=== PATIENT | female | born 1980 | race African-American/Black ===

== ENCOUNTER 2017-07-30 20:36 | Observation (INO) | payer OTHER, MEDICAID ==
[2017-07-30 20:53] VITALS: BP 129/75; PULSE 91; RESP 18; TEMP 98.3; O2SAT 100
--- NOTE | 2017-07-30 21:10 | PD ---
HPI Chief Complaint: Chest Pain Time Seen by Provider: 21:08 Travel History International Travel<30 days: No Contact w/Intl Traveler<30days: No Traveled to known affect area: No History of Present Illness HPI 36-year-old female with history of hypertension, diabetes, obesity, presents emergency department for evaluation of chest pain, substernal in nature that began this morning. Patient states it is intermittent, sharp at times. It has associated nausea. She tells me that it occurs when she is walking or with any activity throughout today. She states it is resolved when she rests. Denies any cardiac history. Does report that she had a grandmother from a heart attack when she was less than 52 years old. Patient denies any recent illnesses, fever, or chills. She denies any bowel or bladder changes. She has no other symptoms to report at this time. PFSH Past Medical History Asthma: Yes Diabetes: Yes Patient Takes Glucophage: No Diminished Hearing: No Hypertension: Yes Immunizations Current: Yes ?: Not Past Surgical History Section: Yes (X3) Social History Alcohol Use: No Tobacco Use: No Substance Use: No Allergies-Medications (Allergen,Severity, Reaction): Coded Allergies: No Known Allergies (Verified Allergy, Unknown, 07/30/17) Reported Meds & Prescriptions Reported Meds & Active Scripts Active Reported Janumet (Sitagliptin-Metformin) 50-1,000 Mg Tab 1 Tab PO BID Omeprazole 20 Mg Tab 20 Mg PO DAILY Invokana (Canagliflozin) 100 Mg Tab 100 Mg PO DAILY Take before 1st meal of day. Lisinopril 2.5 Mg Tab 2.5 Mg PO DAILY Atorvastatin (Atorvastatin Calcium) 20 Mg Tab 20 Mg PO HS Novolin 70-30 Inj (Insulin Human Isoph/Insulin Regular) 1,000 Unit/10 Ml Vial 24 Units SQ TID Review of Systems Except as stated in HPI: all other systems reviewed are Neg Physical Exam Narrative GENERAL: Obese female patient, in no acute distress SKIN: Focused skin assessment warm/dry. HEAD: Atraumatic. Normocephalic. EYES: Pupils equal and round. No scleral icterus. No injection or drainage. ENT: No nasal bleeding or discharge. Mucous membranes pink and moist. NECK: Trachea midline. No JVD. CARDIOVASCULAR: Elevated rate and rhythm. No murmur appreciated. RESPIRATORY: No accessory muscle use. Clear to auscultation. Breath sounds equal bilaterally. GASTROINTESTINAL: Abdomen soft, non-tender, nondistended. Hepatic and splenic margins not palpable. MUSCULOSKELETAL: No obvious deformities. No clubbing. No cyanosis. No edema. NEUROLOGICAL: Awake and alert. No obvious cranial nerve deficits. Motor grossly within normal limits. Normal speech. PSYCHIATRIC: Appropriate mood and affect; insight and judgment normal. Data Data Last Documented VS Vital Signs Date Time Temp Pulse Resp B/P (MAP) Pulse Ox O2 Delivery O2 Flow Rate FiO2 07/30/17 21:49 78 18 123/68 (86) 99 Room Air 127/78 (94) 07/30/17 20:53 98.3 Orders Orders Electrocardiogram (07/30/17 21:25) Basic Metabolic Panel (Bmp) (07/30/17 21:25) Ckmb (Isoenzyme) Profile (07/30/17 21:25) Complete Blood Count With Diff (07/30/17 21:25) Magnesium (Mg) (07/30/17 21:25) Prothrombin Time / Inr (Pt) (07/30/17 21:25) Act Partial Throm Time (Ptt) (07/30/17 21:25) Troponin I (07/30/17 21:25) Lipase (07/30/17 21:25) Ecg Monitoring (07/30/17 21:25) Bilateral Bp Monitoring (07/30/17 21:25) Iv Access Insert/Monitor (07/30/17 21:25) Oximetry (07/30/17 21:25) Oxygen Administration (07/30/17 21:25) Aspirin Chew (Aspirin Chew) (07/30/17 21:30) Sodium Chloride 0.9% Flush (Ns Flush) (07/30/17 21:30) Nitroglycerin Sl (Nitrostat Sl) (07/30/17 21:30) Sodium Chlorid 0.9% 500 Ml Inj (Ns 500 M (07/30/17 21:30) Chest, Pa & Lat (07/30/17 21:25) Metformin (Glucophage) (07/30/17 22:15) Insulin Human Nph/R 70/30 Inj (Novolin 7 (07/30/17 22:15) Sitagliptin (Januvia) (07/30/17 22:15) Admit Order (Ed Use Only) (07/30/17 22:14) Activity Bed Rest With Brp (07/30/17 22:14) Vital Signs (Adult) Q4H (07/30/17 22:14) Cardiac Rhythm .As Directed (07/30/17 22:14) Notify Dr: Other .PRN (07/30/17 22:14) Notify Dr. Parameters (07/30/17 22:14) Resp Oxygen Nasal Cannula (07/30/17 ) Diet Npo (07/31/17 Breakfast) Ckmb (Isoenzyme) Profile (07/31/17 22:14) Ckmb (Isoenzyme) Profile (08/01/17 01:14) Troponin I (07/31/17 00:30) Troponin I (07/31/17 03:30) Electrocardiogram (07/31/17 00:30) Electrocardiogram (07/31/17 03:30) ^ Obtain (07/30/17 22:14) Sodium Chloride 0.9% Flush (Ns Flush) (07/30/17 22:15) Sodium Chloride 0.9% Flush (Ns Flush) (07/31/17 09:00) Acetaminophen (Tylenol) (07/30/17 22:15) Nitroglycerin Sl (Nitrostat Sl) (07/30/17 22:15) Supervisor [employer] / Telemetry NITA.Q8H (07/30/17 22:14) Rajiv Bilateral/Knee High NITA.QSHIFT (07/30/17 22:14) Labs Laboratory Tests Test 07/30/17 21:20 White Blood Count 11.4 TH/MM3 Red Blood Count 4.21 MIL/MM3 Hemoglobin 11.0 GM/DL Hematocrit 34.1 % Mean Corpuscular Volume 80.8 FL Mean Corpuscular Hemoglobin 26.0 PG Mean Corpuscular Hemoglobin Concent 32.2 % Red Cell Distribution Width 15.2 % Platelet Count 362 TH/MM3 Mean Platelet Volume 8.6 FL Neutrophils (%) (Auto) 55.5 % Lymphocytes (%) (Auto) 37.6 % Monocytes (%) (Auto) 5.0 % Eosinophils (%) (Auto) 1.3 % Basophils (%) (Auto) 0.6 % Neutrophils # (Auto) 6.3 TH/MM3 Lymphocytes # (Auto) 4.3 TH/MM3 Monocytes # (Auto) 0.6 TH/MM3 Eosinophils # (Auto) 0.1 TH/MM3 Basophils # (Auto) 0.1 TH/MM3 CBC Comment DIFF FINAL Differential Comment Prothrombin Time 10.4 SEC Prothromb Time International Ratio 1.0 RATIO Activated Partial Thromboplast Time 27.3 SEC Blood Urea Nitrogen 9 MG/DL Creatinine 0.67 MG/DL Random Glucose 265 MG/DL Calcium Level 8.9 MG/DL Magnesium Level 1.5 MG/DL Sodium Level 135 MEQ/L Potassium Level 3.7 MEQ/L Chloride Level 101 MEQ/L Carbon Dioxide Level 22.0 MEQ/L Anion Gap 12 MEQ/L Estimat Glomerular Filtration Rate 101 ML/MIN Total Creatine Kinase 62 U/L Troponin I LESS THAN 0.02 NG/ML Lipase 95 U/L MDM Medical Decision Making Medical Screen Exam Complete: Yes Emergency Medical Condition: Yes Medical Record Reviewed: Yes Differential Diagnosis ACS versus indigestion versus gastritis versus pancreatitis versus bronchospasm Narrative Course 36-year-old female presents emergency department for evaluation of chest pain, intermittently occurring since this morning. Patient appears well and without distress. EKG is complete and reviewed by my attending physician. Patient is given aspirin and sublingual nitroglycerin. Chest pain workup is initiated. Last Impressions Chest X-Ray 07/30/172124 Signed Impressions: Service Date/Time: Sunday, July 30, 2017 21:54 - CONCLUSION: No acute disease. Efraín Pearce MD Laboratory Tests Test 07/30/17 21:20 White Blood Count 11.4 TH/MM3 Red Blood Count 4.21 MIL/MM3 Hemoglobin 11.0 GM/DL Hematocrit 34.1 % Mean Corpuscular Volume 80.8 FL Mean Corpuscular Hemoglobin 26.0 PG Mean Corpuscular Hemoglobin Concent 32.2 % Red Cell Distribution Width 15.2 % Platelet Count 362 TH/MM3 Mean Platelet Volume 8.6 FL Neutrophils (%) (Auto) 55.5 % Lymphocytes (%) (Auto) 37.6 % Monocytes (%) (Auto) 5.0 % Eosinophils (%) (Auto) 1.3 % Basophils (%) (Auto) 0.6 % Neutrophils # (Auto) 6.3 TH/MM3 Lymphocytes # (Auto) 4.3 TH/MM3 Monocytes # (Auto) 0.6 TH/MM3 Eosinophils # (Auto) 0.1 TH/MM3 Basophils # (Auto) 0.1 TH/MM3 CBC Comment DIFF FINAL Differential Comment Prothrombin Time 10.4 SEC Prothromb Time International Ratio 1.0 RATIO Activated Partial Thromboplast Time 27.3 SEC Blood Urea Nitrogen 9 MG/DL Creatinine 0.67 MG/DL Random Glucose 265 MG/DL Calcium Level 8.9 MG/DL Magnesium Level 1.5 MG/DL Sodium Level 135 MEQ/L Potassium Level 3.7 MEQ/L Chloride Level 101 MEQ/L Carbon Dioxide Level 22.0 MEQ/L Anion Gap 12 MEQ/L Estimat Glomerular Filtration Rate 101 ML/MIN Total Creatine Kinase 62 U/L Troponin I LESS THAN 0.02 NG/ML Lipase 95 U/L Diagnosis Primary Impression: Chest pain Qualified Codes: R07.9 - Chest pain, unspecified Admitting Information Admitting Physician Requests: Observation Condition: Stable Aida Skinner July 30, 2017 21:10
[2017-07-30 21:14] VITALS: BP 124/70; PULSE 91; RESP 18; O2SAT 100
[2017-07-30] MEDS ORDERED: NOVO7030P2 SQ (21:15)
[2017-07-30] MEDS ORDERED: LISI2.5T3 PO (21:18)
[2017-07-30] MEDS ORDERED: OMEP20TA93 PO (21:18)
[2017-07-30] MEDS ORDERED: JANU50TA8 PO (21:18)
[2017-07-30] MEDS ORDERED: ATOR20TA15 PO (21:18)
[2017-07-30] MEDS ORDERED: CANA100T PO (21:18)
[2017-07-30] MEDS ORDERED: SODIUM CHLORIDE 0.9% FLUSH 10 ML FLUSH IVF PRN (21:30)
[2017-07-30] MEDS ORDERED: SODIUM CHLORID 0.9% 500 ML INJ 500 ML IV ONE (21:30)
[2017-07-30] MEDS ORDERED: ASPIRIN 81 MG CHEW TAB PO ONE (21:30)
[2017-07-30] MEDS: NITROGLYCERIN 0.4 MG SL 25 TABS/BTL SL SCH ×3 (21:35→21:42)
[2017-07-30 21:36] VITALS: O2SAT 100
[2017-07-30 21:49] VITALS: BP_SYST 123; BP_SYST 127; BP_DIAS 68; BP_DIAS 78; PULSE 78; RESP 18; O2SAT 99
[2017-07-30 21:56] LABS: AUTOMATED NEUTROPHIL # 6.3 TH/MM3 (1.8-7.7); BASOPHIL # 0.1 TH/MM3 (0-0.2); BASOPHIL % 0.6 % (0.0-2.0); EOSINOPHIL # 0.1 TH/MM3 (0-0.4); EOSINOPHIL % 1.3 % (0.0-4.0); HEMATOCRIT 34.1 % (35.0-46.0); LYMPH % 37.6 % (9.0-44.0); LYMPHOCYTE # 4.3 TH/MM3 (1.0-4.8); MEAN CELL VOLUME 80.8 FL (80.0-100.0); MEAN CORPUSCULAR HGB CONC 32.2 % (32.0-36.0); MEAN PLATELET VOLUME 8.6 FL (7.0-11.0); MONOCYTE # 0.6 TH/MM3 (0-0.9); NEUT % 55.5 % (16.0-70.0); PLATELET COUNT 362 TH/MM3 (150-450); RED BLOOD COUNT 4.21 MIL/MM3 (4.00-5.30); RED CELL DISTRIBUTION WIDTH 15.2 % (11.6-17.2); WHITE BLOOD COUNT 11.4 TH/MM3 (4.0-11.0)
[2017-07-30 22:08] LABS: BLOOD UREA NITROGEN 9 MG/DL (7-18); CALCIUM 8.9 MG/DL (8.5-10.1); CHLORIDE 101 MEQ/L (98-107); CREATININE 0.67 MG/DL (0.50-1.00); GLOMERULAR FILTRATION RATE 101 ML/MIN (>89); GLUCOSE,RANDOM 265 MG/DL (74-106); MAGNESIUM 1.5 MG/DL (1.5-2.5); PROTHROMBIN TIME - PATIENT 10.4 SEC (9.8-11.6); SODIUM (NA) 135 MEQ/L (136-145)
--- NOTE | 2017-07-30 22:12 | RADRPT ---
EXAM DATE/TIME: 07/30/2017 21:54 [facility] COMPARISON: No previous studies available for comparison. INDICATIONS : Chest pain for 2 days. MEDICAL HISTORY : Hypertension. Asthma. Diabetes. SURGICAL HISTORY : None. ENCOUNTER: Initial ACUITY: 2 days PAIN SCORE: 8/10 LOCATION: Bilateral chest FINDINGS: PA and lateral views of the chest demonstrate the lungs to be symmetrically aerated without evidence of mass, infiltrate or effusion. The cardiomediastinal contours are unremarkable. Osseous structure s are intact. CONCLUSION: No acute disease. Efraín Pearce MD on July 30, 2017 at 22:09 Board Certified Radiologist. This report was verified electronically.
[2017-07-30 22:13] LABS: TROPONIN I LESS THAN 0.02 NG/ML (0.02-0.05)
[2017-07-30] MEDS ORDERED: INSULIN HUMAN NPH/R 70/30 1,000 UNITS/10 ML VIAL SQ ONE (22:15)
[2017-07-30] MEDS ORDERED: SODIUM CHLORIDE 0.9% FLUSH 10 ML FLUSH IV FLUSH PRN (22:15)
[2017-07-30] MEDS ORDERED: ACETAMINOPHEN 500 MG CPLT PO PRN (22:15)
[2017-07-30] MEDS ORDERED: NITROGLYCERIN 0.4 MG SL 25 TABS/BTL SL PRN (22:15)
[2017-07-30] MEDS ORDERED: metFORMIN HCL 500 MG TAB PO ONE (22:15)
[2017-07-31 00:58] VITALS: PULSE 82
[2017-07-31 03:12] VITALS: BP 113/66; PULSE 81; RESP 18; TEMP 98.4; O2SAT 100
[2017-07-31 04:03] VITALS: PULSE 78
--- NOTE | 2017-07-31 07:22 | EKG ---
Date Performed: 07/31/2017 Time Performed: 00:33:30 PTAGE: 36 years EKG: Sinus rhythm NONSPECIFIC T-WAVE ABNORMALITY BORDERLINE ECG Since PREVIOUS TRACING , no significant change noted PREVIOUS TRACIN07/30/2017 21.21 DOCTOR: Bailey Garcia Interpretating Date/Time 07/31/2017 07:20:56
--- NOTE | 2017-07-31 07:23 | EKG ---
Date Performed: 07/31/2017 Time Performed: 03:36:27 PTAGE: 36 years EKG: Sinus rhythm NONSPECIFIC T-WAVE ABNORMALITY BORDERLINE ECG Since PREVIOUS TRACING , no significant change noted PREVIOUS TRACIN07/31/2017 00.33 DOCTOR: Bailey Garcia Interpretating Date/Time 07/31/2017 07:21:09
[2017-07-31] MEDS ORDERED: SODIUM CHLORIDE 0.9% FLUSH 10 ML FLUSH IV FLUSH SCH (09:00)
--- NOTE | 2017-07-31 09:29 | HHI.HP ---
HPI Primary Care Physician No Primary Care Physician Chief Complaint Chest pain History of Present Illness This is a 36-year-old female with history of diabetes, hyperlipidemia, hypertension, and asthma the presents to ED via private vehicle with a complaint of developing a discomfort in her chest. It began yesterday morning and remained intermittently throughout the day. Last 10-15 minutes. Denies associated shortness of breath, nausea, or diaphoresis. The discomfort did not radiate. She found nothing in particular to bring on the discomfort. It was not exertional. Found nothing to worsen or improve when the pain was present. Denies recent illness. Denies recent travel. Denies . Voices compliance with medications. Review of Systems General: Patient denies fevers, chills, and recent travel. HEENT: Patient denies headache, sore throat, difficulty swallowing. Cardiovascular: Has the chest discomfort as mentioned above. Denies sensation of heart beating rapidly or irregularly. No syncope. Denies diaphoresis. Respiratory: Denies shortness of breath or inspirational chest discomfort. Denies coughing wheezing or hemoptysis. GI: Patient denies nausea, vomiting, diarrhea, abdominal pain, bloody stools. Musculoskeletal: Patient denies joint pain or edema. Denies calf pain or edema. Neurovascular: Patient denies numbness, tingling, weakness in extremities. Denies headache. Endocrine: Denies polyuria and polydipsia. Hematologic: Denies easy bruising. Skin: Denies rash or itching. Past Family Social History Allergies: Coded Allergies: No Known Allergies (Verified Allergy, Unknown, 07/30/17) Past Medical History Diabetes, hyperlipidemia, hypertension, asthma. Denies CAD. Past Surgical History 3. Reported Medications Reported Meds & Active Scripts Active Reported Janumet (Sitagliptin-Metformin) 50-1,000 Mg Tab 1 Tab PO BID Omeprazole 20 Mg Tab 20 Mg PO DAILY Invokana (Canagliflozin) 100 Mg Tab 100 Mg PO DAILY Take before 1st meal of day. Lisinopril 2.5 Mg Tab 2.5 Mg PO DAILY Atorvastatin (Atorvastatin Calcium) 20 Mg Tab 20 Mg PO HS Novolin 70-30 Inj (Insulin Human Isoph/Insulin Regular) 1,000 Unit/10 Ml Vial 24 Units SQ TID Active Ordered Medications Current Medications Medications (Trade) Dose Ordered Sig/Kadie Route Start Time Stop Time Status Last Admin (NS Flush) 2 ml UNSCH PRN IVF 07/30/17 21:30 (NS Flush) 2 ml UNSCH PRN IV FLUSH 07/30/17 22:15 (NS Flush) 2 ml BID IV FLUSH 07/31/17 09:00 (Tylenol) 500 mg Q4H PRN PO 07/30/17 22:15 (Nitrostat Sl) 0.4 mg Q5M PRN SL 07/30/17 22:15 Family History Denies family history of CAD. Social History Non-smoker. Denies alcohol or illicit drug use. Physical Exam Vital Signs Vital Signs Date Time Temp Pulse Resp B/P (MAP) Pulse Ox O2 Delivery O2 Flow Rate FiO2 07/31/17 04:25 21 07/31/17 03:12 98.4 81 18 113/66 (82) 100 07/30/17 23:00 07/30/17 21:49 78 18 123/68 (86) 99 Room Air 127/78 (94) 07/30/17 21:36 100 Room Air 07/30/17 21:36 100 Room Air 07/30/17 21:14 91 18 124/70 (88) 100 Room Air 07/30/17 20:53 98.3 91 18 129/75 (93) 100 Physical Exam GENERAL: This is a well-nourished, well-developed patient, in no apparent distress. Patient is obese at 125 kg. Patient speaks in clear complete sentences. Patient is pleasant. HEENT: Head is atraumatic and normocephalic. Neck is supple without lymphadenopathy and trachea is midline. No JVD or carotid bruits. CARDIOVASCULAR: Regular rate and rhythm without murmurs, gallops, or rubs. RESPIRATORY: Clear to auscultation. Breath sounds equal bilaterally. No wheezes , rales, or rhonchi. Chest wall is nontender. No use of accessory muscles. GASTROINTESTINAL: Abdomen is nontender, nondistended. Abdomen soft. No obvious pulsatile mass or bruit. No CVA tenderness. Strong femoral pulses bilaterally. Normal bowel sounds in all quadrants. MUSCULOSKELETAL: Patient is moving upper and lower extremities freely. No calf tenderness or edema, no Homans sign. Strong pulses in upper and lower extremities. NEUROLOGICAL: Patient is alert and oriented. Cranial nerves 2-12 are grossly intact. No focal deficits and speech is clear. SKIN: No rash and turgor is normal. Laboratory Laboratory Tests Test 07/30/17 21:20 07/31/17 01:15 07/31/17 03:45 White Blood Count 11.4 Red Blood Count 4.21 Hemoglobin 11.0 Hematocrit 34.1 Mean Corpuscular Volume 80.8 Mean Corpuscular Hemoglobin 26.0 Mean Corpuscular Hemoglobin Concent 32.2 Red Cell Distribution Width 15.2 Platelet Count 362 Mean Platelet Volume 8.6 Neutrophils (%) (Auto) 55.5 Lymphocytes (%) (Auto) 37.6 Monocytes (%) (Auto) 5.0 Eosinophils (%) (Auto) 1.3 Basophils (%) (Auto) 0.6 Neutrophils # (Auto) 6.3 Lymphocytes # (Auto) 4.3 Monocytes # (Auto) 0.6 Eosinophils # (Auto) 0.1 Basophils # (Auto) 0.1 CBC Comment DIFF FINAL Differential Comment Prothrombin Time 10.4 Prothromb Time International Ratio 1.0 Activated Partial Thromboplast Time 27.3 Blood Urea Nitrogen 9 Creatinine 0.67 Random Glucose 265 Calcium Level 8.9 Magnesium Level 1.5 Sodium Level 135 Potassium Level 3.7 Chloride Level 101 Carbon Dioxide Level 22.0 Anion Gap 12 Estimat Glomerular Filtration Rate 101 Total Creatine Kinase 62 Troponin I LESS THAN 0.02 LESS THAN 0.02 LESS THAN 0.02 Lipase 95 Result Diagram: 07/30/17211907/30/172119 Imaging Last 48 hours Impressions Chest X-Ray 07/30/172124 Signed Impressions: Service Date/Time: Sunday, July 30, 2017 21:54 - CONCLUSION: No acute disease. Efraín Pearce MD Course EKGs are sinus rhythm without significant ST segment depressions or elevations. Caprini VTE Risk Assessment Caprini VTE Risk Assessment: No/Low Risk (score <= 1) Caprini Risk Assessment Model Point Value = 1 Point Value = 2 Point Value = 3 Point Value = 5 Age 41-60 Minor surgery BMI > 25 kg/m2 Swollen legs Varicose veins or History of unexplained or recurrent spontaneous Oral contraceptives or hormone replacement Sepsis (< 1 month) Serious lung disease, including pneumonia (< 1 month) Abnormal pulmonary function Acute myocardial infarction Congestive heart failure (< 1 month) History of inflammatory bowel disease Medical patient at bed rest Age 61-74 Arthroscopic surgery Major open surgery (> 45 min) Laparoscopic surgery (> 45 min) Malignancy Confined to bed (> 72 hours) Immobilizing plaster cast Central venous access Age >= 75 History of VTE Family history of VTE Factor V Leiden Prothrombin [id number] Lupus anticoagulant Anticardiolipin antibodies Elevated serum homocysteine Heparin-induced thrombocytopenia Other congenital or acquired thrombophilia Stroke (< 1 month) Elective arthroplasty Hip, pelvis, or leg fracture Acute spinal cord injury (< 1 month) Prophylaxis Regimen Total Risk Factor Score Risk Level Prophylaxis Regimen 0-1 Low Early ambulation 2 Moderate Order ONE of the following: *Sequential Compression Device (SCD) *Heparin 5000 units SQ BID 3-4 Higher Order ONE of the following medications: *Heparin 5000 units SQ TID *Enoxaparin/Lovenox 40 mg SQ daily (WT < 150 kg, CrCl > 30 mL/min) *Enoxaparin/Lovenox 30 mg SQ daily (WT < 150 kg, CrCl > 10-29 mL/min) *Enoxaparin/Lovenox 30 mg SQ BID (WT < 150 kg, CrCl > 30 mL/min) AND/OR *Sequential Compression Device (SCD) 5 or more Highest Order ONE of the following medications: *Heparin 5000 units SQ TID (Preferred with Epidurals) *Enoxaparin/Lovenox 40 mg SQ daily (WT < 150 kg, CrCl > 30 mL/min) *Enoxaparin/Lovenox 30 mg SQ daily (WT < 150 kg, CrCl > 10-29 mL/min) *Enoxaparin/Lovenox 30 mg SQ BID (WT < 150 kg, CrCl > 30 mL/min) AND *Sequential Compression Device (SCD) Assessment and Plan Assessment and Plan * Chest pain: Patient has had serial cardiac enzymes and EKGs for ruling out purposes. She was seen by Dr. Garcia of cardiology in the chest pain center. She will have a Hemant protocol ETT. Patient will be discharged home if her stress test is nonischemic with instructions to follow-up with PCP. Return to ED for interval issues. Resume all medications. * Diabetes: Resume medication. Follow diabetic diet. * Hypertension: Continue medication. * Hyperlipidemia: Continue medication. * Obesity: Patient has been counseled on the importance of diet, exercise, and weight loss. Patient is stable at this time. She is agreeable to this plan. Javi Cardenas July 31, 2017 09:29
[2017-07-31 09:30] VITALS: PULSE 77
--- NOTE | 2017-07-31 09:31 | HHI.DCPOC ---
Discharge Care Plan Diagnosis: (1) Chest pain (2) DM (diabetes mellitus) (3) Hypertension (4) Hyperlipidemia (5) Asthma (6) Obesity Goals to Promote Your Health * To prevent worsening of your condition and complications * To maintain your health at the optimal level Directions to Meet Your Goals Take your medications as prescribed Follow your dietary instruction Follow activity as directed Keep your appointments as scheduled Take your immunizations and boosters as scheduled If your symptoms worsen call your PCP, if no PCP go to Urgent Care Center or Emergency Room Smoking is Dangerous to Your Health. Avoid second hand smoke Call the 24-hour hour crisis hotline for domestic abuse at Javi Cardenas July 31, 2017 09:31
[2017-07-31 09:34] VITALS: BP 123/86; PULSE 102; RESP 18; TEMP 98.7; O2SAT 98
[2017-07-31] MEDS ORDERED: PILL SPLITTER OTHER PRN (09:45)
[2017-07-31] MEDS ORDERED: LISINOPRIL 5 MG TAB PO SCH (10:00)
--- NOTE | 2017-07-31 22:11 | TR ---
Date Performed: 07/31/2017 Time Performed: 08:59:21 DOCTOR: Bailey Garcia DRUG LIST: CLINICAL HISTORY: REASON FOR TEST: Chest pain REASON FOR ENDING: OBSERVATION: CONCLUSION: ELAINE PROTOCOL. NO CP. TEST STOPPED AFTER EXCEEDING GOAL HR SECONDARY TO SOB AND LEG FATIGUE.Maximum BM=057 % Max HR Achieved=94.0% Total Exercise Time=4:00 COMMENTS: No ischmia
--- NOTE | 2017-08-01 11:57 | EKG ---
Date Performed: 07/30/2017 Time Performed: 21:21:33 PTAGE: 36 years EKG: Sinus rhythm NONSPECIFIC T-WAVE ABNORMALITY BORDERLINE ECG NO PREVIOUS TRACING DOCTOR: Michael Verdugo Interpretating Date/Time 08/01/2017 11:50:52
== END 2017-07-31 12:51 | disposition home or self-care (01) ==
LOC: NEPC 20:36 → NEDA 22:18 → NEPFCDU 23:32
PROVIDERS: ADMIT Internal Medicine Cardiovascular Disease; ATTEND Internal Medicine Cardiovascular Disease
DX: R07.89 Other chest pain (principal); E11.9 Type 2 diabetes mellitus without complications; I10 Essential (primary) hypertension; E78.5 Hyperlipidemia, unspecified; J45.909 Unspecified asthma, uncomplicated; E66.9 Obesity, unspecified; R11.0 Nausea
CPT/HCPCS: 71046; 80048; 82550; 82948; 83690; 83735; 84484; 85025; 85610; 85730; 93005; 93017; 96360; 96372; 99285; G0378; J1815; J7040